=== PATIENT | female | born 1935 | race Caucasian/White ===

== ENCOUNTER 2016-11-17 13:32 | Inpatient (IN) | payer OTHER ==
[~2016-11-17] VITALS: Ht 167.6 cm; Wt 62.9 kg
[2016-11-17 14:55] LABS: MCH 30.8 PG (29.0-34.0); MCHC 31.2 G/DL (30.0-36.0); MCV 98.8 FL (83-99); MEAN PLAT.VOLUME 9.4 uM^3 (9.5-12.4); PLATELET COUNT 223 K/uL (156-360); RBC DIS.WIDTH-CV 17.6 % (11.8-14.6); RED BLOOD COUNT 2.53 M/uL (3.80-5.20); WHITE BLOOD COUNT 3.8 K/uL (4.1-10.2)
[2016-11-17 15:05] LABS: CHLORIDE 104 mEq/L (99-109); SODIUM 139 mEq/L (136-147)
[2016-11-17 15:08] LABS: GLUCOSE 125 mg/dL (70-99)
[2016-11-17 15:09] LABS: ANION GAP 10 MEQ/L (2-14)
[2016-11-17 15:10] LABS: TOTAL BILIRUBIN 0.4 mg/dL (0.0-1.0)
[2016-11-17 15:11] LABS: ALKALINE PHOSPHATASE 78 IU/L (3-129); GFR ESTIMATE (CALCULATED) > 59 mL/min/
[2016-11-17 15:12] LABS: UREA NITROGEN (BUN) 15 mg/dL (9-23)
[2016-11-17 15:15] LABS: LIPASE 9 U/L (1.0-51.0)
[2016-11-17 16:40] LABS: ADD MIUA? YES; BILIRUBIN NEGATIVE; BLOOD NEGATIVE; COLOR YELLOW ((YELLOW)); GLUCOSE (STRIP) NEGATIVE; KETONES NEGATIVE; LEUKOCYTES NEGATIVE; NITRITE NEGATIVE; PROTEIN (STRIP) 30; SPECIFIC GRAVITY 1.026 (1.000-1.030); UROBILINOGEN 0.2 MG/DL (0.2-1.0)
[2016-11-17 16:56] LABS: BACTERIA 1+ /HPF; CASTS NONE SEEN /LPF; CRYSTALS PRESENT; EPITHELIAL CELLS RARE /HPF; MUCUS NONE SEEN /LPF; RED BLOOD CELLS 0-5 /HPF (0-5); WHITE BLOOD CELLS 0-5 /HPF (0-5)
[2016-11-17 18:40] LABS: INTER. NORMALIZED RATIO 1.1; PROTHROMBIN TIME 11.1 (9.2-11.2); PTT 23.1 (25-32)
[2016-11-17 20:38] VITALS: BP 136/66
[2016-11-17 20:55] VITALS: BP 138/69
[2016-11-17 21:51] VITALS: BP 153/67
[2016-11-17] MEDS ORDERED: NEXIUM40 MG PO (22:32)
[2016-11-17] MEDS ORDERED: LORAZEPAM0.5 MG PO (22:33)
[2016-11-17] MEDS ORDERED: LEXAPRO10 MG PO (22:34)
[2016-11-17] MEDS ORDERED: LISINOPRIL10 MG PO (22:36)
[2016-11-17 22:52] VITALS: BP 162/89
[2016-11-17 23:53] VITALS: BP 128/68
[2016-11-18] VITALS (10 sets, daily range): BP systolic 110–150; BP diastolic 59–76
[2016-11-18 06:16] LABS: HEMATOCRIT 28.1 % (36.0-46.0); MCH 31.2 PG (29.0-34.0); MCHC 32.7 G/DL (30.0-36.0); MCV 95.3 FL (83-99); MEAN PLAT.VOLUME 9.6 uM^3 (9.5-12.4); PLATELET COUNT 172 K/uL (156-360); RBC DIS.WIDTH-CV 21.2 % (11.8-14.6); RBC DIS.WIDTH-SD 73.9 % (39-53); RED BLOOD COUNT 2.95 M/uL (3.80-5.20); WHITE BLOOD COUNT 2.9 K/uL (4.1-10.2)
[2016-11-18 06:33] LABS: EOSINOPHIL (%) 2.7 % (0-5); EOSINOPHIL COUNT 0.1 K/uL (0-0.3); INSTRUMENT ABS NEUTROPHIL CT 1.6 K/uL; LYMPHOCYTE COUNT 1.1 K/uL (1.0-2.8); MONOCYTE (%) 2.4 % (3-12); MONOCYTE COUNT 0.1 K/uL (0-0.8); NEUTROPHIL (%) 54.4 % (45-76); NEUTROPHIL COUNT 1.6 K/uL (1.8-6.4)
[2016-11-18 06:40] LABS: ANION GAP 5 MEQ/L (2-14); CHLORIDE 110 MEQ/L (99-109); GFR ESTIMATE (CALCULATED) 38 mL/min/; GLUCOSE 104 mg/dL (70-99); POTASSIUM 4.1 MEQ/L (3.7-5.4); SAMPLE HEMOLYSIS CHECK 0; SAMPLE ICTERIC CHECK 0; SAMPLE LIPEMIA CHECK 0; SODIUM 142 MEQ/L (136-147); UREA NITROGEN (BUN) 17 mg/dL (9-23)
[2016-11-18] MEDS ORDERED: SLEEP MED (12:16)
[2016-11-18] MEDS ORDERED: VITAMIN B122500 MCG PO (12:17)
[2016-11-18] MEDS ORDERED: IRON325 M1 PO (12:17)
[2016-11-18] MEDS ORDERED: ARTIFICIAL TEAR15 M1 BOTH EYES (12:18)
[2016-11-19 03:34] VITALS: BP 121/62
[2016-11-19 06:53] VITALS: BP 131/63
[2016-11-19 06:57] LABS: HEMATOCRIT 27.1 % (36.0-46.0); MCH 31.2 PG (29.0-34.0); MCHC 32.5 G/DL (30.0-36.0); MCV 96.1 FL (83-99); PLATELET COUNT 163 K/uL (156-360); RBC DIS.WIDTH-CV 20.9 % (11.8-14.6); RBC DIS.WIDTH-SD 73.4 % (39-53); RED BLOOD COUNT 2.82 M/uL (3.80-5.20); WHITE BLOOD COUNT 2.5 K/uL (4.1-10.2)
[2016-11-19 07:15] LABS: ANION GAP 7 MEQ/L (2-14); CHLORIDE 111 MEQ/L (99-109); GFR ESTIMATE (CALCULATED) 38 mL/min/; GLUCOSE 91 mg/dL (70-99); POTASSIUM 3.9 MEQ/L (3.7-5.4); SAMPLE HEMOLYSIS CHECK 0; SAMPLE ICTERIC CHECK 0; SAMPLE LIPEMIA CHECK 0; SODIUM 141 MEQ/L (136-147); UREA NITROGEN (BUN) 17 mg/dL (9-23)
[2016-11-19] MEDS ORDERED: ZOFRAN4 MG PO (10:40)
[2016-11-19] MEDS ORDERED: FAMOTIDINE20 MG PO (10:40)
== END 2016-11-19 13:06 | disposition home or self-care (01) | DRG 694 ==
LOC: EME 13:32 → EDOF 20:18 → 2EAST 21:23
PROVIDERS: Hospitalist; Internal Medicine; Nurse Practitioner Family
PROC: 30233N1 Transfusion of Nonautologous Red Blood Cells into Peripheral Vein, Percutaneous Approach (ICD-10-PCS; principal; 2016-11-17)
DX: N13.2 Hydronephrosis with renal and ureteral calculous obstruction (principal); D70.9 Neutropenia, unspecified; D64.9 Anemia, unspecified; E11.9 Type 2 diabetes mellitus without complications; I10 Essential (primary) hypertension; K86.9 Disease of pancreas, unspecified; Z87.440 Personal history of urinary (tract) infections; Z83.3 Family history of diabetes mellitus; Z82.49 Family history of ischemic heart disease and other diseases of the circulatory system; R19.7 Diarrhea, unspecified; R53.83 Other fatigue; R68.83 Chills (without fever)
CPT/HCPCS: 74000; 74177; 80048; 80053; 81003; 83605; 83690; 83735; 85025; 85027; 85610; 85730; 86900; 86901; 86920; 93971; 99281; 99285; J1644; J1885; J1940; J2270; J2405; J3010; J7030; J7040; P9016

== ENCOUNTER 2016-12-04 12:41 | Emergency (ER) | payer OTHER ==
[~2016-12-04] VITALS: Ht 167.6 cm; Wt 58.3 kg
[~2016-12-04 12:41] MED LIST: ARTIFICIAL TEAR15 M1 BOTH EYES; FAMOTIDINE20 MG PO; IRON325 M1 PO; LEXAPRO10 MG PO; LISINOPRIL10 MG PO; LORAZEPAM0.5 MG PO; NEXIUM40 MG PO; SLEEP MED; VITAMIN B122500 MCG PO; ZOFRAN4 MG PO
[2016-12-04 13:57] LABS: HEMATOCRIT 32.6 % (36.0-46.0); MCH 30.4 PG (29.0-34.0); MCHC 31.6 G/DL (30.0-36.0); MCV 96.2 FL (83-99); MEAN PLAT.VOLUME 9.2 uM^3 (9.5-12.4); PLATELET COUNT 173 K/uL (156-360); RBC DIS.WIDTH-CV 18.6 % (11.8-14.6); RBC DIS.WIDTH-SD 66.4 % (39-53); RED BLOOD COUNT 3.39 M/uL (3.80-5.20); WHITE BLOOD COUNT 3.3 K/uL (4.1-10.2)
[2016-12-04 14:06] LABS: CHLORIDE 107 mEq/L (99-109); POTASSIUM 4.2 mEq/L (3.7-5.4); SODIUM 139 mEq/L (136-147)
[2016-12-04 14:09] LABS: GLUCOSE 95 mg/dL (70-99)
[2016-12-04 14:10] LABS: ANION GAP 6 MEQ/L (2-14)
[2016-12-04 14:11] LABS: TOTAL BILIRUBIN 0.6 mg/dL (0.0-1.0)
[2016-12-04 14:12] LABS: ALKALINE PHOSPHATASE 79 IU/L (3-129); GFR ESTIMATE (CALCULATED) > 59 mL/min/
[2016-12-04 14:13] LABS: UREA NITROGEN (BUN) 17 mg/dL (9-23)
[2016-12-04 15:09] LABS: ADD MIUA? NO; BILIRUBIN NEGATIVE; BLOOD NEGATIVE; COLOR YELLOW ((YELLOW)); GLUCOSE (STRIP) NEGATIVE; KETONES NEGATIVE; LEUKOCYTES NEGATIVE; NITRITE NEGATIVE; PROTEIN (STRIP) 30; SPECIFIC GRAVITY 1.013 (1.000-1.030); UCUL ADDED? NO; UROBILINOGEN 0.2 MG/DL (0.2-1.0)
[2016-12-04 16:28] VITALS: BP 163/77
== END 2016-12-04 16:29 | disposition home or self-care (01) ==
LOC: EME 12:41
DX: R10.9 Unspecified abdominal pain (principal); R53.1 Weakness; R35.0 Frequency of micturition
CPT/HCPCS: 80053; 81003; 85027; 99281; 99283

== ENCOUNTER 2017-04-10 15:18 | Emergency (ER) | payer OTHER ==
[~2017-04-10] VITALS: Ht 167.6 cm; Wt 50.2 kg
[~2017-04-10 15:18] MED LIST changes: +BENZONATATE100 MG PO; +CEFTIN500 MG PO; +DIGOXIN125 MCG PO; +DOXYCYCLINE HY100 M3 PO; +LOPRESSOR25 MG PO; +MEGESTROL400 MG/10 PO; +MIRTAZAPINE15 MG PO; +TYLENOL REGULA325 MG PO
[2017-04-10 15:54] LABS: HEMATOCRIT 24.2 % (36.0-46.0); MCH 32.4 PG (29.0-34.0); MCHC 31.8 G/DL (30.0-36.0); MCV 101.7 FL (83-99); MEAN PLAT.VOLUME 9.9 uM^3 (9.5-12.4); NRBC (%) 0.4 /100 WBC (0-0); PLATELET COUNT 214 K/uL (156-360); RBC DIS.WIDTH-CV 20.4 % (11.8-14.6); RBC DIS.WIDTH-SD 74.7 % (39-53); RED BLOOD COUNT 2.38 M/uL (3.80-5.20); WHITE BLOOD COUNT 5.2 K/uL (4.1-10.2)
[2017-04-10 16:05] LABS: CHLORIDE 107 mEq/L (99-109); POTASSIUM 3.8 mEq/L (3.7-5.4); SODIUM 140 mEq/L (136-147)
[2017-04-10 16:07] LABS: GLUCOSE 97 mg/dL (70-99)
[2017-04-10 16:09] LABS: ANION GAP 9 MEQ/L (2-14)
[2017-04-10 16:11] LABS: GFR ESTIMATE (CALCULATED) > 59 mL/min/
[2017-04-10 16:12] LABS: UREA NITROGEN (BUN) 12 mg/dL (9-23)
[2017-04-10 17:35] VITALS: BP 151/61
[2017-04-11] MEDS ORDERED: LOPRESSOR50 MG PO (11:27)
[2017-04-11] MEDS ORDERED: REMERON30 M2 PO (11:28)
[2017-04-11] MEDS ORDERED: ONE-A-DAY ESSE1 EAC1 PO (11:30)
[2017-04-11] MEDS ORDERED: VITAMIN D400 UNIT PO (11:30)
[2017-04-11] MEDS ORDERED: VITAMIN B122500 MCG PO (11:31)
[2017-04-11] MEDS ORDERED: VITAMIN C1000 MG PO (11:31)
== END 2017-04-10 17:51 | disposition home or self-care (01) ==
LOC: EME 15:18
DX: D64.9 Anemia, unspecified (principal); R42 Dizziness and giddiness; Z85.830 Personal history of malignant neoplasm of bone
CPT/HCPCS: 80048; 85027; 86850; 86900; 86901; 86920; 99281; 99284

== ENCOUNTER 2017-06-24 13:08 | Inpatient (IN) | payer OTHER ==
[~2017-06-24] VITALS: Ht 167.6 cm; Wt 48.5 kg
[~2017-06-24 13:08] MED LIST changes: +LOPRESSOR50 MG PO; +ONE-A-DAY ESSE1 EAC1 PO; +REMERON30 M2 PO; +VITAMIN C1000 MG PO; +VITAMIN D400 UNIT PO
[2017-06-24 13:54] LABS: HEMATOCRIT 25.3 % (36.0-46.0); HEMOGLOBIN 8.3 G/DL (11.9-15.5); MCH 35.8 PG (29.0-34.0); MCHC 32.8 G/DL (30.0-36.0); MCV 109.1 FL (83-99); PLATELET COUNT 132 K/uL (156-360); RBC DIS.WIDTH-CV 17.2 % (11.8-14.6); RBC DIS.WIDTH-SD 68.9 % (39-53); RED BLOOD COUNT 2.32 M/uL (3.80-5.20); WHITE BLOOD COUNT 3.2 K/uL (4.1-10.2)
[2017-06-24 14:14] LABS: TROP-I INTERPRETATION NEGATIVE; TROPONIN-I 0.04 ng/mL (0.0-0.30)
[2017-06-24 14:22] LABS: CHLORIDE 100 MEQ/L (99-109); CREATININE 0.7 MG/DL (0.6-1.3); GFR ESTIMATE (CALCULATED) > 59 mL/min/; GLUCOSE 175 mg/dL (70-99); POTASSIUM 3.8 MEQ/L (3.7-5.4); SODIUM 131 MEQ/L (136-147); UREA NITROGEN (BUN) 17 mg/dL (9-23)
[2017-06-24] MEDS ORDERED: ANTIVERT25 MG PO (16:10)
[2017-06-24] MEDS ORDERED: BACTRIM,SEPT1 TABLET PO (16:12)
[2017-06-24] MEDS ORDERED: ELIQUIS2.5 MG PO (16:12)
[2017-06-24] MEDS ORDERED: RANITIDINE HCL150 MG PO (16:14)
[2017-06-24 20:51] VITALS: BP 131/60
[2017-06-24 23:49] VITALS: BP 112/54
[2017-06-25] VITALS (13 sets, daily range): BP systolic 108–156; BP diastolic 57–82
[2017-06-25 06:07] LABS: HEMOGLOBIN 6.7 G/DL (11.9-15.5); MCH 34.7 PG (29.0-34.0); MCHC 31.9 G/DL (30.0-36.0); MCV 108.8 FL (83-99); PLATELET COUNT 130 K/uL (156-360); RBC DIS.WIDTH-CV 17.2 % (11.8-14.6); RBC DIS.WIDTH-SD 68.5 % (39-53); RED BLOOD COUNT 1.93 M/uL (3.80-5.20); WHITE BLOOD COUNT 2.8 K/uL (4.1-10.2)
[2017-06-25 06:08] LABS: CHLORIDE 102 MEQ/L (99-109); CREATININE 0.6 MG/DL (0.6-1.3); GFR ESTIMATE (CALCULATED) > 59 mL/min/; GLUCOSE 148 mg/dL (70-99); POTASSIUM 3.7 MEQ/L (3.7-5.4); SODIUM 132 MEQ/L (136-147); UREA NITROGEN (BUN) 16 mg/dL (9-23)
[2017-06-25 06:54] LABS: ABS NEUTROPHIL COUNT 1.9; ANISOCYTOSIS 2+; BAND NEUTROPHILS 20.9 % (0-8.0); EOSINOPHIL ABS CT 0; EOSINOPHILS 0.9 % (0-5.0); LYMPHOCYTES 29.5 % (15.0-45.0); MACROCYTES 2+; MONOCYTES 0.9 % (0-9.0); MYELOCYTES 1.7 %; PLAT.SUFFICIENCY DECREASED; POIKILOCYTOSIS 1+; POLYCHROMASIA 2+
[2017-06-25 07:10] LABS: SEG.NEUTROPHILS 46.1 % (46.0-76.0)
[2017-06-25 14:59] LABS: IMM.RETIC FRACTION 12.1 % (3-19); RETIC HGB EQUIVALENT 30.4 (28-36)
[2017-06-25 16:06] LABS: FOLIC ACID (FOLATE) 6.8 NG/ML (5.0-22.0)
[2017-06-25 16:20] LABS: FERRITIN 1507 NG/ML (10-291)
[2017-06-25 16:42] LABS: IRON 27 MCG/DL (35-150); TRANSFERRIN (TIBC) 75.3 mg/dL (215-380); TRANSFERRIN SATUR. 36 % (20-55)
[2017-06-26 00:51] VITALS: BP 138/64
[2017-06-26 03:40] VITALS: BP 137/63
[2017-06-26 06:13] LABS: CHLORIDE 100 MEQ/L (99-109); CREATININE 0.5 MG/DL (0.6-1.3); GFR ESTIMATE (CALCULATED) > 59 mL/min/; GLUCOSE 131 mg/dL (70-99); POTASSIUM 3.1 MEQ/L (3.7-5.4); SODIUM 133 MEQ/L (136-147); UREA NITROGEN (BUN) 18 mg/dL (9-23)
[2017-06-26 06:56] LABS: HEMATOCRIT 28.2 % (36.0-46.0); MCH 33.1 PG (29.0-34.0); RBC DIS.WIDTH-CV 20.8 % (11.8-14.6); RBC DIS.WIDTH-SD 75.6 % (39-53); WHITE BLOOD COUNT 2.5 K/uL (4.1-10.2)
[2017-06-26 07:05] LABS: ABS NEUTROPHIL COUNT 1.8; ANISOCYTOSIS 2+; ATYPICAL LYMPHOCYTE 2.6 %; BAND NEUTROPHILS 25.4 % (0-8.0); EOSINOPHIL ABS CT 0; EOSINOPHILS 0.9 % (0-5.0); HEMOGLOBIN 9.3 G/DL (11.9-15.5); LYMPHOCYTES 21.9 % (15.0-45.0); MACROCYTES 2+; MCV 100.4 FL (83-99); METAMYELOCYTES 1.8 %; MONOCYTES 0.9 % (0-9.0); PLAT.SUFFICIENCY DECREASED; PLATELET COUNT 134 K/uL (156-360); RED BLOOD COUNT 2.81 M/uL (3.80-5.20); SEG.NEUTROPHILS 46.5 % (46.0-76.0)
[2017-06-26 08:23] VITALS: BP 148/75
[2017-06-26 11:18] VITALS: BP 136/71
[2017-06-26 15:55] VITALS: BP 131/60
[2017-06-26 20:43] VITALS: BP 152/66
[2017-06-27] VITALS (7 sets, daily range): BP systolic 118–149; BP diastolic 59–76
[2017-06-27 03:35] LABS: APPEARANCE SL.HAZY ((CLEAR)); BILIRUBIN NEGATIVE; BLOOD MODERATE; GLUCOSE (STRIP) NEGATIVE; KETONES NEGATIVE; LEUKOCYTES SMALL; NITRITE NEGATIVE; PROTEIN (STRIP) 30; SPECIFIC GRAVITY 1.024 (1.000-1.030); UROBILINOGEN 0.2 MG/DL (0.2-1.0)
[2017-06-27 03:42] LABS: BACTERIA 1+ /HPF; CALCIUM OXALATE CRYSTALS 1+ /HPF; EPITHELIAL CELLS RARE /HPF; HYALINE CASTS 0-5 /LPF; MUCUS TRACE /LPF; RED BLOOD CELLS TNTC /HPF (0-5); WHITE BLOOD CELLS TNTC /HPF (0-5)
[2017-06-27 04:03] LABS: COLOR YELLOW ((YELLOW))
[2017-06-27 08:52] LABS: HEMATOCRIT 29.8 % (36.0-46.0); HEMOGLOBIN 9.8 G/DL (11.9-15.5); MCH 33.3 PG (29.0-34.0); MCHC 32.9 G/DL (30.0-36.0); MCV 101.4 FL (83-99); PLATELET COUNT 132 K/uL (156-360); RBC DIS.WIDTH-CV 20.2 % (11.8-14.6); RBC DIS.WIDTH-SD 73.9 % (39-53); RED BLOOD COUNT 2.94 M/uL (3.80-5.20); WHITE BLOOD COUNT 2.4 K/uL (4.1-10.2)
[2017-06-27 09:28] LABS: CHLORIDE 103 MEQ/L (99-109); CREATININE 0.5 MG/DL (0.6-1.3); GFR ESTIMATE (CALCULATED) > 59 mL/min/; GLUCOSE 138 mg/dL (70-99); POTASSIUM 3.9 MEQ/L (3.7-5.4); SODIUM 135 MEQ/L (136-147); UREA NITROGEN (BUN) 16 mg/dL (9-23)
[2017-06-28 03:57] VITALS: BP 138/63
[2017-06-28 06:26] LABS: HEMATOCRIT 27.3 % (36.0-46.0); HEMOGLOBIN 9.1 G/DL (11.9-15.5); MCHC 33.3 G/DL (30.0-36.0); MCV 101.9 FL (83-99); PLATELET COUNT 121 K/uL (156-360); RBC DIS.WIDTH-CV 19.7 % (11.8-14.6); RED BLOOD COUNT 2.68 M/uL (3.80-5.20); WHITE BLOOD COUNT 2.3 K/uL (4.1-10.2)
[2017-06-28 06:56] LABS: ABS NEUTROPHIL COUNT 1.5; ANISOCYTOSIS 2+; EOSINOPHIL ABS CT 0; LYMPHOCYTES 31.3 % (15.0-45.0); MACROCYTES 2+; METAMYELOCYTES 0.9 %; MONOCYTES 1.7 % (0-9.0); PLAT.SUFFICIENCY ADEQUATE; SEG.NEUTROPHILS 62.6 % (46.0-76.0)
[2017-06-28 06:58] LABS: BAND NEUTROPHILS 3.5 % (0-8.0)
[2017-06-28 07:03] LABS: CHLORIDE 103 MEQ/L (99-109); CREATININE 0.5 MG/DL (0.6-1.3); GFR ESTIMATE (CALCULATED) > 59 mL/min/; GLUCOSE 104 mg/dL (70-99); POTASSIUM 3.4 MEQ/L (3.7-5.4); SODIUM 137 MEQ/L (136-147); UREA NITROGEN (BUN) 14 mg/dL (9-23)
[2017-06-28 07:29] VITALS: BP 144/66
[2017-06-28 11:20] VITALS: BP 142/68
[2017-06-28 15:18] VITALS: BP 125/61
[2017-06-28 19:09] VITALS: BP 142/66
[2017-06-28 22:53] VITALS: BP 132/67
[2017-06-29 03:58] VITALS: BP 143/69
[2017-06-29 06:21] LABS: HEMATOCRIT 27.3 % (36.0-46.0); HEMOGLOBIN 8.8 G/DL (11.9-15.5); MCH 32.8 PG (29.0-34.0); MCHC 32.2 G/DL (30.0-36.0); MCV 101.9 FL (83-99); PLATELET COUNT 133 K/uL (156-360); RBC DIS.WIDTH-CV 19.3 % (11.8-14.6); RBC DIS.WIDTH-SD 71.8 % (39-53); RED BLOOD COUNT 2.68 M/uL (3.80-5.20); WHITE BLOOD COUNT 2.6 K/uL (4.1-10.2)
[2017-06-29 06:41] LABS: CHLORIDE 102 MEQ/L (99-109); CREATININE 0.5 MG/DL (0.6-1.3); GFR ESTIMATE (CALCULATED) > 59 mL/min/; GLUCOSE 121 mg/dL (70-99); POTASSIUM 3.7 MEQ/L (3.7-5.4); SODIUM 139 MEQ/L (136-147); UREA NITROGEN (BUN) 12 mg/dL (9-23)
[2017-06-29 07:02] LABS: STOOL OCCULT BLD 1ST SPECIMEN POSITIVE
[2017-06-29 07:20] LABS: C DIFF TOXIN POSITIVE (NEGATIVE)
[2017-06-29 07:50] VITALS: BP 119/56
[2017-06-29 11:50] VITALS: BP 135/63
[2017-06-29 16:17] VITALS: BP 148/67
[2017-06-29 19:13] VITALS: BP 133/65
[2017-06-29 20:05] LABS: HEMATOCRIT 28.5 % (36.0-46.0); HEMOGLOBIN 9.5 G/DL (11.9-15.5); MCV 102.2 FL (83-99)
[2017-06-29 23:01] VITALS: BP 118/58
[2017-06-30 03:55] VITALS: BP 122/62
[2017-06-30 06:28] LABS: HEMOGLOBIN 8.7 G/DL (11.9-15.5); MCH 32.8 PG (29.0-34.0); MCHC 32.2 G/DL (30.0-36.0); MCV 101.9 FL (83-99); PLATELET COUNT 145 K/uL (156-360); RBC DIS.WIDTH-CV 18.6 % (11.8-14.6); RBC DIS.WIDTH-SD 69.8 % (39-53); RED BLOOD COUNT 2.65 M/uL (3.80-5.20)
[2017-06-30 07:06] LABS: CHLORIDE 102 MEQ/L (99-109); CREATININE 0.5 MG/DL (0.6-1.3); GFR ESTIMATE (CALCULATED) > 59 mL/min/; GLUCOSE 120 mg/dL (70-99); POTASSIUM 3.4 MEQ/L (3.7-5.4); SODIUM 138 MEQ/L (136-147); UREA NITROGEN (BUN) 11 mg/dL (9-23)
[2017-06-30 07:30] VITALS: BP 120/62
[2017-06-30 11:00] VITALS: BP 130/63
[2017-06-30 18:00] VITALS: BP 131/61
[2017-07-01 00:09] VITALS: BP 136/60
[2017-07-01 06:30] LABS: HEMOGLOBIN 8.4 G/DL (11.9-15.5); MCH 33.5 PG (29.0-34.0); MCHC 32.3 G/DL (30.0-36.0); MCV 103.6 FL (83-99); PLATELET COUNT 142 K/uL (156-360); RBC DIS.WIDTH-CV 18.7 % (11.8-14.6); RBC DIS.WIDTH-SD 70.9 % (39-53); RED BLOOD COUNT 2.51 M/uL (3.80-5.20); WHITE BLOOD COUNT 3.1 K/uL (4.1-10.2)
[2017-07-01 06:54] LABS: CHLORIDE 105 MEQ/L (99-109); CREATININE 0.5 MG/DL (0.6-1.3); GFR ESTIMATE (CALCULATED) > 59 mL/min/; GLUCOSE 102 mg/dL (70-99); SODIUM 139 MEQ/L (136-147); UREA NITROGEN (BUN) 8 mg/dL (9-23)
[2017-07-01 07:30] VITALS: BP 144/67
[2017-07-01 12:07] VITALS: BP 133/70
[2017-07-01 16:36] VITALS: BP 158/74
[2017-07-01 21:53] VITALS: BP 148/72
[2017-07-02 07:00] LABS: HEMOGLOBIN 8.8 G/DL (11.9-15.5); MCH 33.8 PG (29.0-34.0); MCHC 32.6 G/DL (30.0-36.0); MCV 103.8 FL (83-99); PLATELET COUNT 158 K/uL (156-360); RBC DIS.WIDTH-CV 18.5 % (11.8-14.6); RBC DIS.WIDTH-SD 70.8 % (39-53)
[2017-07-02 07:44] VITALS: BP 137/70
[2017-07-02 11:52] VITALS: BP 122/68
[2017-07-02 12:09] VITALS: BP 119/69
[2017-07-02 12:17] LABS: HEMOGLOBIN 9.6 G/DL (11.9-15.5); MCH 33.7 PG (29.0-34.0); MCV 105.3 FL (83-99); PLATELET COUNT 177 K/uL (156-360); RBC DIS.WIDTH-CV 18.4 % (11.8-14.6); RBC DIS.WIDTH-SD 70.7 % (39-53); RED BLOOD COUNT 2.85 M/uL (3.80-5.20); WHITE BLOOD COUNT 3.2 K/uL (4.1-10.2)
[2017-07-02 12:41] LABS: ALBUMIN 2.5 G/DL (3.2-4.8); ALKALINE PHOSPHATASE 57 IU/L (3-129); ALT (GPT) 6 IU/L (3-49); AST (GOT) 13 IU/L (2-34); CHLORIDE 100 MEQ/L (99-109); CREATININE 0.5 MG/DL (0.6-1.3); GFR ESTIMATE (CALCULATED) > 59 mL/min/; GLUCOSE 101 mg/dL (70-99); POTASSIUM 4.2 MEQ/L (3.7-5.4); SODIUM 138 MEQ/L (136-147); TOTAL BILIRUBIN 0.3 MG/DL (0.0-1.0); TOTAL PROTEIN 5.5 G/DL (6.4-8.3); UREA NITROGEN (BUN) 9 mg/dL (9-23)
[2017-07-02] MEDS ORDERED: FERROUS SULFAT325 MG PO (14:28)
[2017-07-02] MEDS ORDERED: VANCOMYCIN125 MG/2.5 PO (14:28)
[2017-07-02] MEDS ORDERED: CARDIZEM30 MG PO (14:29)
[2017-07-02] MEDS ORDERED: FLORASTOR250 MG PO (14:29)
== END 2017-07-02 16:23 | DRG 308 ==
LOC: EME 13:08 → EDOF 15:44 → ENRESERV 15:50 → EDOF 16:15 → 4EAST 16:15 → 4SOUTH 16:15 → ENRESERV 16:16 → 4SOUTH 20:25 → ENRESERV 06-25 07:31 → 4EAST 06-25 08:50 → ENRESERV 06-27 20:01 → 5EAST 06-27 22:17
PROVIDERS: Hospitalist; Internal Medicine; Physician Assistant Medical
PROC: 30233N1 Transfusion of Nonautologous Red Blood Cells into Peripheral Vein, Percutaneous Approach (ICD-10-PCS; principal; 2017-06-25)
DX: I48.0 Paroxysmal atrial fibrillation (principal); J13 Pneumonia due to Streptococcus pneumoniae; J44.0 Chronic obstructive pulmonary disease with (acute) lower respiratory infection; I82.412 Acute embolism and thrombosis of left femoral vein; J98.11 Atelectasis; E11.9 Type 2 diabetes mellitus without complications; E86.0 Dehydration; E78.5 Hyperlipidemia, unspecified; R19.5 Other fecal abnormalities; I10 Essential (primary) hypertension; R05 Cough; C90.00 Multiple myeloma not having achieved remission; A04.72 Enterocolitis due to Clostridium difficile, not specified as recurrent; D64.9 Anemia, unspecified; E87.6 Hypokalemia; D61.818 Other pancytopenia; E87.1 Hypo-osmolality and hyponatremia; B00.1 Herpesviral vesicular dermatitis; R29.6 Repeated falls; R60.9 Edema, unspecified; Z92.21 Personal history of antineoplastic chemotherapy; Z91.81 History of falling; Z86.718 Personal history of other venous thrombosis and embolism; Z88.5 Allergy status to narcotic agent; Z68.1 Body mass index [BMI] 19.9 or less, adult; Z79.01 Long term (current) use of anticoagulants; Z79.899 Other long term (current) drug therapy; Z85.830 Personal history of malignant neoplasm of bone; Z83.3 Family history of diabetes mellitus; Z82.49 Family history of ischemic heart disease and other diseases of the circulatory system
CPT/HCPCS: 71045; 80048; 80053; 81003; 82272; 82607; 82728; 82746; 82948; 83540; 83605; 84443; 84466; 84484; 85014; 85018; 85025; 85027; 85046; 86850; 86900; 86901; 86920; 87040; 87070; 87205; 87449; 87493; 87502; 93005; 93971; 94799; 97530 GP; 99281; 99285; J0295; J0456; J1160; J1644; J1940; J3480; J7030; J7040; J7050; P9016

== ENCOUNTER 2017-06-29 14:49 | Inpatient (IN) | payer OTHER ==
[~2017-06-29] VITALS: Ht 167.6 cm; Wt 49.5 kg
[~2017-06-29 14:49] MED LIST changes: +ANTIVERT25 MG PO; +BACTRIM,SEPT1 TABLET PO; +ELIQUIS2.5 MG PO; +RANITIDINE HCL150 MG PO
[2017-07-02] MEDS ORDERED: FERROUS SULFAT325 MG PO (14:28)
[2017-07-02] MEDS ORDERED: VANCOMYCIN125 MG/2.5 PO (14:28)
[2017-07-02] MEDS ORDERED: CARDIZEM30 MG PO (14:29)
[2017-07-02] MEDS ORDERED: FLORASTOR250 MG PO (14:29)
[2017-07-02 16:40] VITALS: BP 130/60
[2017-07-03 00:05] VITALS: BP 135/64
[2017-07-03 06:39] VITALS: BP 128/59
[2017-07-03 07:09] LABS: HEMATOCRIT 28.2 % (36.0-46.0); HEMOGLOBIN 8.9 G/DL (11.9-15.5); MCH 33.5 PG (29.0-34.0); MCHC 31.6 G/DL (30.0-36.0); PLATELET COUNT 167 K/uL (156-360); RBC DIS.WIDTH-CV 18.6 % (11.8-14.6); RBC DIS.WIDTH-SD 72.9 % (39-53); RED BLOOD COUNT 2.66 M/uL (3.80-5.20); WHITE BLOOD COUNT 3.5 K/uL (4.1-10.2)
[2017-07-03 07:40] LABS: ALBUMIN 2.4 G/DL (3.2-4.8); ALKALINE PHOSPHATASE 56 IU/L (3-129); ALT (GPT) 6 IU/L (3-49); AST (GOT) 12 IU/L (2-34); CHLORIDE 103 MEQ/L (99-109); CREATININE 0.7 MG/DL (0.6-1.3); GFR ESTIMATE (CALCULATED) > 59 mL/min/; GLUCOSE 118 mg/dL (70-99); POTASSIUM 4.6 MEQ/L (3.7-5.4); SODIUM 139 MEQ/L (136-147); TOTAL PROTEIN 5.1 G/DL (6.4-8.3); UREA NITROGEN (BUN) 15 mg/dL (9-23)
[2017-07-03 07:42] LABS: TOTAL BILIRUBIN 0.2 MG/DL (0.0-1.0)
[2017-07-03 15:08] VITALS: BP 122/58
[2017-07-04 07:06] VITALS: BP 133/64
[2017-07-04 15:00] VITALS: BP 120/52
[2017-07-05 06:19] VITALS: BP 138/68
[2017-07-05 16:29] VITALS: BP 118/55
[2017-07-06 05:47] VITALS: BP 114/53
[2017-07-06 15:30] VITALS: BP 110/58
[2017-07-07 06:26] VITALS: BP 118/58
[2017-07-07 15:26] VITALS: BP 115/55
[2017-07-08 05:23] VITALS: BP 121/58
[2017-07-08 08:39] LABS: HEMATOCRIT 30.1 % (36.0-46.0); HEMOGLOBIN 9.3 G/DL (11.9-15.5); MCH 33.5 PG (29.0-34.0); MCHC 30.9 G/DL (30.0-36.0); MCV 108.3 FL (83-99); NRBC (%) 0.7 /100 WBC (0-0); PLATELET COUNT 216 K/uL (156-360); RBC DIS.WIDTH-CV 18.3 % (11.8-14.6); RBC DIS.WIDTH-SD 73.4 % (39-53); RED BLOOD COUNT 2.78 M/uL (3.80-5.20); WHITE BLOOD COUNT 4.4 K/uL (4.1-10.2)
[2017-07-08 09:08] LABS: ALKALINE PHOSPHATASE 65 IU/L (3-129); AST (GOT) 17 IU/L (2-34); CHLORIDE 102 MEQ/L (99-109); CREATININE 0.8 MG/DL (0.6-1.3); GFR ESTIMATE (CALCULATED) > 59 mL/min/; GLUCOSE 138 mg/dL (70-99); POTASSIUM 4.3 MEQ/L (3.7-5.4); SODIUM 139 MEQ/L (136-147)
[2017-07-08 09:16] LABS: ALT (GPT) 12 IU/L (3-49); TOTAL BILIRUBIN 0.3 MG/DL (0.0-1.0); TOTAL PROTEIN 6.6 G/DL (6.4-8.3); UREA NITROGEN (BUN) 25 mg/dL (9-23)
[2017-07-08 09:28] VITALS: BP 129/60
[2017-07-08 15:26] VITALS: BP 112/59
[2017-07-08] MEDS ORDERED: TRIAMCINOLONE A15 GM TP (19:23)
[2017-07-08] MEDS ORDERED: VANCOCIN 250 M250 MG PO (19:23)
[2017-07-08] MEDS ORDERED: ELIQUIS2.5 MG PO (19:23)
[2017-07-08] MEDS ORDERED: CARDIZEM30 MG PO (19:23)
[2017-07-08] MEDS ORDERED: RANITIDINE HCL150 MG PO (19:23)
[2017-07-08] MEDS ORDERED: FERROUS SULFAT325 MG PO (19:23)
[2017-07-08] MEDS ORDERED: LORATADINE10 M2 PO (19:23)
[2017-07-08] MEDS ORDERED: FLORASTOR250 MG PO (19:23)
[2017-07-09 05:32] VITALS: BP 123/55
== END 2017-07-09 11:44 | disposition home health service (06) | DRG 945 ==
LOC: 3WEST 14:49 → ENPENDDIS 07-09 → 3WEST 07-09 11:44
PROVIDERS: Physical Medicine & Rehabilitation Pain Medicine
PROC: F07M0ZZ Range of Motion and Joint Mobility Treatment of Musculoskeletal System - Whole Body (ICD-10-PCS; principal; 2017-07-02)
DX: R53.1 Weakness (principal); R29.6 Repeated falls; R26.9 Unspecified abnormalities of gait and mobility; A04.72 Enterocolitis due to Clostridium difficile, not specified as recurrent; C90.00 Multiple myeloma not having achieved remission; I82.402 Acute embolism and thrombosis of unspecified deep veins of left lower extremity; L30.9 Dermatitis, unspecified; R60.9 Edema, unspecified; J44.9 Chronic obstructive pulmonary disease, unspecified; R63.4 Abnormal weight loss; Z68.1 Body mass index [BMI] 19.9 or less, adult; R15.9 Full incontinence of feces; D64.9 Anemia, unspecified; D69.6 Thrombocytopenia, unspecified; E83.51 Hypocalcemia; E87.1 Hypo-osmolality and hyponatremia; E87.6 Hypokalemia; I48.2 Chronic atrial fibrillation; I10 Essential (primary) hypertension; E78.5 Hyperlipidemia, unspecified; Z82.49 Family history of ischemic heart disease and other diseases of the circulatory system; Z83.3 Family history of diabetes mellitus; Z86.718 Personal history of other venous thrombosis and embolism
CPT/HCPCS: 80053; 85027; 92523 GN; 97110 GO; 97530 GP

== ENCOUNTER 2017-08-02 13:48 | Emergency (ER) | payer OTHER ==
[~2017-08-02] VITALS: Ht 167.6 cm; Wt 50.3 kg
[~2017-08-02 13:48] MED LIST changes: +CARDIZEM30 MG PO; +FERROUS SULFAT325 MG PO; +FLORASTOR250 MG PO; +LORATADINE10 M2 PO; +TRIAMCINOLONE A15 GM TP; +VANCOCIN 250 M250 MG PO; +VANCOMYCIN125 MG/2.5 PO
[2017-08-02 15:13] LABS: HEMATOCRIT 25.5 % (36.0-46.0); HEMOGLOBIN 8.5 G/DL (11.9-15.5); MCH 34.6 PG (29.0-34.0); MCHC 33.3 G/DL (30.0-36.0); MCV 103.7 FL (83-99); RBC DIS.WIDTH-CV 18.1 % (11.8-14.6); RBC DIS.WIDTH-SD 68.6 % (39-53); RED BLOOD COUNT 2.46 M/uL (3.80-5.20); WHITE BLOOD COUNT 3.4 K/uL (4.1-10.2)
[2017-08-02 15:23] LABS: ALBUMIN 3.3 g/dL (3.2-4.8)
[2017-08-02 15:24] LABS: CHLORIDE 102 mEq/L (99-109); POTASSIUM 4.2 mEq/L (3.7-5.4); SODIUM 138 mEq/L (136-147)
[2017-08-02 15:26] LABS: GLUCOSE 101 mg/dL (70-99); TOTAL PROTEIN 7.2 g/dL (6.4-8.3)
[2017-08-02 15:29] LABS: ALKALINE PHOSPHATASE 59 IU/L (3-129)
[2017-08-02 15:30] LABS: CREATININE 0.8 mg/dL (0.6-1.3); GFR ESTIMATE (CALCULATED) > 59 mL/min/
[2017-08-02 15:31] LABS: AST (GOT) 10 IU/L (2-34); UREA NITROGEN (BUN) 17 mg/dL (9-23)
[2017-08-02 15:32] LABS: ALT (GPT) 8 IU/L (3-49)
[2017-08-02 16:46] VITALS: BP 107/60
[2017-08-02 18:19] LABS: PLATELET COUNT 118 K/uL (156-360)
== END 2017-08-02 16:57 | disposition home or self-care (01) ==
LOC: EME 13:48
PROVIDERS: Physician Assistant
DX: R13.10 Dysphagia, unspecified (principal); K21.9 Gastro-esophageal reflux disease without esophagitis; E11.9 Type 2 diabetes mellitus without complications; C96.9 Malignant neoplasm of lymphoid, hematopoietic and related tissue, unspecified; I48.91 Unspecified atrial fibrillation; Z79.01 Long term (current) use of anticoagulants; I10 Essential (primary) hypertension; F41.9 Anxiety disorder, unspecified; Z87.442 Personal history of urinary calculi; Z88.5 Allergy status to narcotic agent
CPT/HCPCS: 80053; 81003; 84484; 85027; 92610 GN; 93005; 99281; 99284; G8996 GN CH; G8998 GN CH; J7030

== ENCOUNTER 2017-08-06 14:13 | Emergency (ER) | payer OTHER ==
[~2017-08-06] VITALS: Ht 167.6 cm; Wt 48.4 kg
[2017-08-06 16:34] LABS: HEMATOCRIT 26.5 % (36.0-46.0); HEMOGLOBIN 8.6 G/DL (11.9-15.5); MCH 34.4 PG (29.0-34.0); MCHC 32.5 G/DL (30.0-36.0); RBC DIS.WIDTH-CV 18.4 % (11.8-14.6); RBC DIS.WIDTH-SD 70.9 % (39-53); WHITE BLOOD COUNT 3.4 K/uL (4.1-10.2)
[2017-08-06 16:50] LABS: ALBUMIN 3.4 g/dL (3.2-4.8); CHLORIDE 104 mEq/L (99-109); POTASSIUM 3.7 mEq/L (3.7-5.4); SODIUM 142 mEq/L (136-147)
[2017-08-06 16:52] LABS: GLUCOSE 119 mg/dL (70-99); PLATELET COUNT 168 K/uL (156-360); TOTAL PROTEIN 7.7 g/dL (6.4-8.3)
[2017-08-06 16:56] LABS: ALKALINE PHOSPHATASE 56 IU/L (3-129); CREATININE 0.8 mg/dL (0.6-1.3); GFR ESTIMATE (CALCULATED) > 59 mL/min/
[2017-08-06 16:57] LABS: UREA NITROGEN (BUN) 23 mg/dL (9-23)
[2017-08-06 16:58] LABS: AST (GOT) 12 IU/L (2-34)
[2017-08-06 16:59] LABS: ALT (GPT) 8 IU/L (3-49)
[2017-08-06 17:04] LABS: TOTAL BILIRUBIN 0.6 mg/dL (0.0-1.0)
[2017-08-06 17:09] LABS: BASOPHIL (%) 0.9 % (0-1); EOSINOPHIL (%) 1.2 % (0-5); IMMATURE GRANULOCYTE (%) 1.8 % (0.0-0.7); LYMPHOCYTE (%) 33.1 % (15-42); LYMPHOCYTE COUNT 1.1 K/uL (1.0-2.8); MONOCYTE (%) 2.1 % (3-12); MONOCYTE COUNT 0.1 K/uL (0-0.8); NEUTROPHIL (%) 60.9 % (45-76); PLAT.SUFFICIENCY ADEQUATE
[2017-08-06 18:01] LABS: LIPASE < 3.0 U/L (1.0-51.0)
[2017-08-06 18:26] VITALS: BP 134/68
== END 2017-08-06 18:41 | disposition home or self-care (01) ==
LOC: EME 14:13
PROVIDERS: Physician Assistant
DX: R13.10 Dysphagia, unspecified (principal); K21.9 Gastro-esophageal reflux disease without esophagitis; I10 Essential (primary) hypertension; E11.9 Type 2 diabetes mellitus without complications; F41.9 Anxiety disorder, unspecified; Z87.442 Personal history of urinary calculi; Z85.028 Personal history of other malignant neoplasm of stomach; Z87.440 Personal history of urinary (tract) infections; Z88.5 Allergy status to narcotic agent
CPT/HCPCS: 70360; 71046; 80053; 82948; 83690; 85025; 99281; 99285; J7040

== ENCOUNTER 2017-08-15 15:27 | Inpatient (IN) | payer OTHER ==
[~2017-08-15] VITALS: Ht 167.6 cm; Wt 47.8 kg
[2017-08-15 16:28] LABS: ALBUMIN 2.8 g/dL (3.2-4.8); CHLORIDE 101 mEq/L (99-109); POTASSIUM 3.2 mEq/L (3.7-5.4); SODIUM 142 mEq/L (136-147)
[2017-08-15 16:29] LABS: INTER. NORMALIZED RATIO 2.1
[2017-08-15 16:31] LABS: GLUCOSE 176 mg/dL (70-99); PTT 24.6 SEC (25-37); TOTAL PROTEIN 6.4 g/dL (6.4-8.3)
[2017-08-15 16:33] LABS: TOTAL BILIRUBIN 0.7 mg/dL (0.0-1.0)
[2017-08-15 16:34] LABS: ALKALINE PHOSPHATASE 54 IU/L (3-129); CREATININE 0.7 mg/dL (0.6-1.3); GFR ESTIMATE (CALCULATED) > 59 mL/min/
[2017-08-15 16:35] LABS: UREA NITROGEN (BUN) 14 mg/dL (9-23)
[2017-08-15 16:36] LABS: AST (GOT) 13 IU/L (2-34)
[2017-08-15 16:37] LABS: ALT (GPT) 9 IU/L (3-49)
[2017-08-15 17:28] LABS: HEMATOCRIT ND % (36.0-46.0); HEMOGLOBIN ND G/DL (11.9-15.5); MCV ND FL (83-99); RED BLOOD COUNT ND M/uL (3.80-5.20); WHITE BLOOD COUNT ND K/uL (4.1-10.2)
[2017-08-15 17:29] LABS: BAND NEUTROPHILS ND % (0-8.0); IMM.PLATELET FRACTION ND (1-7); MCH ND PG (29.0-34.0); MCHC ND G/DL (30.0-36.0); NRBC (%) ND /100 WBC (0-0); PLATELET COUNT ND K/uL (156-360); RBC DIS.WIDTH-CV ND % (11.8-14.6); RBC DIS.WIDTH-SD ND % (39-53); SEG.NEUTROPHILS ND % (46.0-76.0)
[2017-08-15 17:30] LABS: ANISOCYTOSIS ND; ATYPICAL LYMPHOCYTE ND %; BASOPHILS ND %; EOSINOPHILS ND % (0-5.0); LYMPHOCYTES ND % (15.0-45.0); MACROCYTES ND; MONOCYTES ND % (0-9.0); MYELOCYTES ND %; NUCLEATED RBC'S ND
[2017-08-15 17:31] LABS: ABS NEUTROPHIL COUNT ND; EOSINOPHIL ABS CT ND; HEMATOLOGY COMMENT 1 ND; PLAT.SUFFICIENCY ND; SMUDGE CELLS ND
[2017-08-15 17:34] LABS: HEMATOCRIT 20.4 % (36.0-46.0); MCH 34.2 PG (29.0-34.0); MCHC 31.9 G/DL (30.0-36.0); MCV 107.4 FL (83-99); NRBC (%) 0.6 /100 WBC (0-0); PLATELET COUNT 157 K/uL (156-360); RBC DIS.WIDTH-SD 73.5 % (39-53); WHITE BLOOD COUNT 3.1 K/uL (4.1-10.2)
[2017-08-15 17:36] LABS: HEMOGLOBIN 6.5 G/DL (11.9-15.5)
[2017-08-15 19:00] VITALS: BP 118/65
[2017-08-15 20:50] VITALS: BP 141/48
[2017-08-16] VITALS (9 sets, daily range): BP systolic 123–150; BP diastolic 61–67
[2017-08-16 07:32] LABS: CHLORIDE 106 MEQ/L (99-109); CREATININE 0.7 MG/DL (0.6-1.3); GFR ESTIMATE (CALCULATED) > 59 mL/min/; GLUCOSE 161 mg/dL (70-99); SODIUM 141 MEQ/L (136-147); UREA NITROGEN (BUN) 14 mg/dL (9-23)
[2017-08-16 07:43] LABS: POTASSIUM 5.2 MEQ/L (3.7-5.4)
[2017-08-16 07:48] LABS: HEMATOCRIT 29.4 % (36.0-46.0); HEMOGLOBIN 9.6 G/DL (11.9-15.5); MCH 33.2 PG (29.0-34.0); MCHC 32.7 G/DL (30.0-36.0); MCV 101.7 FL (83-99); PLATELET COUNT 147 K/uL (156-360); RBC DIS.WIDTH-CV 21.2 % (11.8-14.6); RBC DIS.WIDTH-SD 76.5 % (39-53); RED BLOOD COUNT 2.89 M/uL (3.80-5.20); WHITE BLOOD COUNT 4.7 K/uL (4.1-10.2)
[2017-08-16] MEDS ORDERED: CARDIZEM30 MG PO (09:42)
[2017-08-16] MEDS ORDERED: ELIQUIS2.5 MG PO (09:42)
[2017-08-16] MEDS ORDERED: RANITIDINE HCL150 M1 PO (09:44)
[2017-08-16] MEDS ORDERED: BACTRIM,SEPT1 TABLET PO (09:46)
[2017-08-16] MEDS ORDERED: FLORASTOR250 MG PO (09:49)
[2017-08-16] MEDS ORDERED: CLARITIN10 M3 PO (11:00)
[2017-08-16] MEDS ORDERED: NYSTATIN100000 UN1 PO (11:02)
[2017-08-16] MEDS ORDERED: DECADRON4 M1 PO (11:03)
[2017-08-16] MEDS ORDERED: ANTIVERT25 MG PO (11:04)
[2017-08-16] MEDS ORDERED: PRAVACHOL20 MG PO (11:04)
[2017-08-16] MEDS ORDERED: VANCOCIN 250 M250 MG PO (11:04)
[2017-08-16] MEDS ORDERED: ZOLOFT25 MG PO (11:05)
[2017-08-17] VITALS (7 sets, daily range): BP systolic 112–144; BP diastolic 56–79
[2017-08-17 06:26] LABS: HEMATOCRIT 29.6 % (36.0-46.0); HEMOGLOBIN 9.6 G/DL (11.9-15.5); MCHC 32.4 G/DL (30.0-36.0); MCV 101.7 FL (83-99); PLATELET COUNT 163 K/uL (156-360); RBC DIS.WIDTH-CV 20.6 % (11.8-14.6); RED BLOOD COUNT 2.91 M/uL (3.80-5.20); WHITE BLOOD COUNT 3.5 K/uL (4.1-10.2)
[2017-08-17 06:57] LABS: CHLORIDE 106 MEQ/L (99-109); CREATININE 0.6 MG/DL (0.6-1.3); GFR ESTIMATE (CALCULATED) > 59 mL/min/; GLUCOSE 154 mg/dL (70-99); SODIUM 142 MEQ/L (136-147); UREA NITROGEN (BUN) 14 mg/dL (9-23)
[2017-08-17 07:00] LABS: POTASSIUM 4.1 MEQ/L (3.7-5.4)
[2017-08-18 03:50] VITALS: BP 125/65
[2017-08-18 06:58] LABS: HEMATOCRIT 30.9 % (36.0-46.0); MCH 33.2 PG (29.0-34.0); MCHC 32.4 G/DL (30.0-36.0); MCV 102.7 FL (83-99); PLATELET COUNT 178 K/uL (156-360); RBC DIS.WIDTH-CV 19.7 % (11.8-14.6); RBC DIS.WIDTH-SD 73.7 % (39-53); RED BLOOD COUNT 3.01 M/uL (3.80-5.20); WHITE BLOOD COUNT 3.3 K/uL (4.1-10.2)
[2017-08-18 07:06] LABS: CHLORIDE 102 MEQ/L (99-109); CREATININE 0.7 MG/DL (0.6-1.3); GFR ESTIMATE (CALCULATED) > 59 mL/min/; GLUCOSE 144 mg/dL (70-99); POTASSIUM 4.3 MEQ/L (3.7-5.4); SODIUM 139 MEQ/L (136-147); UREA NITROGEN (BUN) 17 mg/dL (9-23)
[2017-08-18 07:09] VITALS: BP 136/63
[2017-08-18 10:55] VITALS: BP 104/57
[2017-08-18 23:45] VITALS: BP 111/56
[2017-08-19 07:23] VITALS: BP 117/58
[2017-08-19 15:53] VITALS: BP 115/58
== END 2017-08-19 17:54 | disposition home health service (06) | DRG 253 ==
LOC: EME 15:27 → EDOF 20:25 → 2EAST 20:25 → ENRESERV 20:27 → 2EAST 23:42 → ENPENDDIS 08-19 → 2EAST 08-19 17:54
PROVIDERS: Emergency Medicine; Hospitalist; Internal Medicine
PROC: 30233N1 Transfusion of Nonautologous Red Blood Cells into Peripheral Vein, Percutaneous Approach (ICD-10-PCS; principal; 2017-08-15)
PROC: 0DB68ZX Excision of Stomach, Via Natural or Artificial Opening Endoscopic, Diagnostic (ICD-10-PCS; 2017-08-16)
PROC: 06H03DZ Insertion of Intraluminal Device into Inferior Vena Cava, Percutaneous Approach (ICD-10-PCS; 2017-08-17)
DX: I82.412 Acute embolism and thrombosis of left femoral vein (principal); E11.9 Type 2 diabetes mellitus without complications; I82.422 Acute embolism and thrombosis of left iliac vein; I48.91 Unspecified atrial fibrillation; I10 Essential (primary) hypertension; E78.5 Hyperlipidemia, unspecified; C90.00 Multiple myeloma not having achieved remission; Z86.718 Personal history of other venous thrombosis and embolism; Z86.19 Personal history of other infectious and parasitic diseases; Z91.19 Patient's noncompliance with other medical treatment and regimen; Z87.442 Personal history of urinary calculi; D63.8 Anemia in other chronic diseases classified elsewhere; Z79.01 Long term (current) use of anticoagulants; K44.9 Diaphragmatic hernia without obstruction or gangrene; K22.2 Esophageal obstruction; K21.9 Gastro-esophageal reflux disease without esophagitis; D53.9 Nutritional anemia, unspecified
CPT/HCPCS: 36415; 80048; 80053; 81003; 82948; 85007; 85025; 85027; 85610; 85730; 86850; 86900; 86901; 86920; 88305; 88342 TC; 93005; 93971; 99281; 99285; C1769; J1644; P9016

== ENCOUNTER 2017-08-28 11:42 | Inpatient (IN) | payer OTHER ==
[~2017-08-28] VITALS: Ht 167.6 cm; Wt 97.8 kg
[~2017-08-28 11:42] MED LIST changes: +DECADRON4 M1 PO; +NYSTATIN100000 UN1 PO
[2017-08-28 13:29] LABS: HEMATOCRIT 32.3 % (36.0-46.0); HEMOGLOBIN 10.6 G/DL (11.9-15.5); MCH 33.7 PG (29.0-34.0); MCHC 32.8 G/DL (30.0-36.0); MCV 102.5 FL (83-99); PLATELET COUNT 350 K/uL (156-360); RBC DIS.WIDTH-CV 18.6 % (11.8-14.6); RBC DIS.WIDTH-SD 69.1 % (39-53); RED BLOOD COUNT 3.15 M/uL (3.80-5.20); WHITE BLOOD COUNT 5.2 K/uL (4.1-10.2)
[2017-08-28 13:38] LABS: INTER. NORMALIZED RATIO 1.7
[2017-08-28 13:41] LABS: ALBUMIN 2.4 g/dL (3.2-4.8); CHLORIDE 105 mEq/L (99-109); POTASSIUM 5.1 mEq/L (3.7-5.4); PTT 27.3 SEC (25-37); SODIUM 140 mEq/L (136-147)
[2017-08-28 13:44] LABS: GLUCOSE 164 mg/dL (70-99); TOTAL PROTEIN 5.8 g/dL (6.4-8.3)
[2017-08-28 13:46] LABS: TOTAL BILIRUBIN 0.6 mg/dL (0.0-1.0)
[2017-08-28 13:47] LABS: ALKALINE PHOSPHATASE 62 IU/L (3-129); CREATININE 0.8 mg/dL (0.6-1.3); GFR ESTIMATE (CALCULATED) > 59 mL/min/
[2017-08-28 13:48] LABS: UREA NITROGEN (BUN) 37 mg/dL (9-23)
[2017-08-28 13:49] LABS: AST (GOT) 10 IU/L (2-34)
[2017-08-28 13:50] LABS: ALT (GPT) 7 IU/L (3-49)
[2017-08-28 13:51] LABS: TROP-I INTERPRETATION NEGATIVE; TROPONIN-I < 0.01 ng/mL (0.0-0.30)
[2017-08-28 16:03] LABS: APPEARANCE SL.HAZY ((CLEAR)); BILIRUBIN NEGATIVE; BLOOD SMALL; COLOR AMBER ((YELLOW)); GLUCOSE (STRIP) NEGATIVE; KETONES NEGATIVE; LEUKOCYTES TRACE; NITRITE NEGATIVE; PROTEIN (STRIP) 30; SPECIFIC GRAVITY 1.028 (1.000-1.030)
[2017-08-28 16:12] LABS: BACTERIA RARE /HPF; EPITHELIAL CELLS RARE /HPF; HYALINE CASTS 0-5 /LPF; MUCUS TRACE /LPF; RED BLOOD CELLS 0-5 /HPF (0-5); UCUL ADDED? NO; WHITE BLOOD CELLS 0-5 /HPF (0-5)
[2017-08-28] MEDS ORDERED: BACTRIM,SEPT1 TABLET PO (18:15)
[2017-08-28] MEDS ORDERED: CLARITIN10 M3 PO (18:15)
[2017-08-28] MEDS ORDERED: ELIQUIS2.5 MG PO (18:15)
[2017-08-28] MEDS ORDERED: ANTIVERT25 MG PO (18:15)
[2017-08-28] MEDS ORDERED: DECADRON4 M1 PO (18:15)
[2017-08-28] MEDS ORDERED: ZOLOFT25 MG PO (18:15)
[2017-08-28] MEDS ORDERED: RANITIDINE HCL150 M1 PO (18:15)
[2017-08-28] MEDS ORDERED: CARDIZEM30 MG PO (18:15)
[2017-08-28] MEDS ORDERED: FLORASTOR250 MG PO (18:15)
[2017-08-28] MEDS ORDERED: PRAVACHOL20 MG PO (18:15)
[2017-08-29 06:34] LABS: HEMATOCRIT 32.4 % (36.0-46.0); MCH 32.7 PG (29.0-34.0); MCHC 30.9 G/DL (30.0-36.0); MCV 105.9 FL (83-99); PLATELET COUNT 327 K/uL (156-360); RBC DIS.WIDTH-CV 18.8 % (11.8-14.6); RBC DIS.WIDTH-SD 73.7 % (39-53); RED BLOOD COUNT 3.06 M/uL (3.80-5.20); WHITE BLOOD COUNT 4.5 K/uL (4.1-10.2)
[2017-08-29 06:55] LABS: ALKALINE PHOSPHATASE 46 IU/L (3-129); ALT (GPT) 6 IU/L (3-49); AST (GOT) 10 IU/L (2-34); CHLORIDE 110 MEQ/L (99-109); CREATININE 0.7 MG/DL (0.6-1.3); GFR ESTIMATE (CALCULATED) > 59 mL/min/; GLUCOSE 154 mg/dL (70-99); POTASSIUM 4.8 MEQ/L (3.7-5.4); SODIUM 141 MEQ/L (136-147); TOTAL BILIRUBIN 0.4 MG/DL (0.0-1.0); TOTAL PROTEIN 4.6 G/DL (6.4-8.3); UREA NITROGEN (BUN) 29 mg/dL (9-23)
[2017-08-29 07:13] LABS: ABS NEUTROPHIL COUNT 3.3; ANISOCYTOSIS 2+; EOSINOPHIL ABS CT 0; LYMPHOCYTES 16.2 % (15.0-45.0); MACROCYTES 2+; METAMYELOCYTES 7.2 %; MICROCYTOSIS 1+; MONOCYTES 2.7 % (0-9.0); MYELOCYTES 0.9 %; NUCLEATED RBC'S 1.8; PLAT.SUFFICIENCY ADEQUATE; PLATELET CLUMPS PRESENT - PLATELET COUNT APPEARS ADQ.
[2017-08-29 07:16] LABS: BAND NEUTROPHILS 47.8 % (0-8.0); SEG.NEUTROPHILS 25.2 % (46.0-76.0)
[2017-08-29 07:32] VITALS: BP 131/61
[2017-08-29 11:27] VITALS: BP 130/64
[2017-08-29 16:20] VITALS: BP 135/68
[2017-08-29 23:51] VITALS: BP 119/65
[2017-08-30 07:41] LABS: HEMATOCRIT 35.7 % (36.0-46.0); HEMOGLOBIN 10.9 G/DL (11.9-15.5); MCH 32.3 PG (29.0-34.0); MCHC 30.5 G/DL (30.0-36.0); MCV 105.9 FL (83-99); NRBC (%) 0.4 /100 WBC (0-0); PLATELET COUNT 370 K/uL (156-360); RBC DIS.WIDTH-CV 18.8 % (11.8-14.6); RBC DIS.WIDTH-SD 73.8 % (39-53); RED BLOOD COUNT 3.37 M/uL (3.80-5.20); WHITE BLOOD COUNT 4.8 K/uL (4.1-10.2)
[2017-08-30 07:43] VITALS: BP 126/76
[2017-08-30 08:06] LABS: CHLORIDE 111 MEQ/L (99-109); CREATININE 0.7 MG/DL (0.6-1.3); GFR ESTIMATE (CALCULATED) > 59 mL/min/; GLUCOSE 146 mg/dL (70-99); POTASSIUM 4.8 MEQ/L (3.7-5.4); SODIUM 143 MEQ/L (136-147); UREA NITROGEN (BUN) 27 mg/dL (9-23)
[2017-08-30 14:43] LABS: C DIFF TOXIN POSITIVE (NEGATIVE)
[2017-08-30 16:00] VITALS: BP 118/72
[2017-08-30 20:37] VITALS: BP 120/70
[2017-08-31 00:16] VITALS: BP 129/60
[2017-08-31 01:04] LABS: APPEARANCE CLEAR ((CLEAR)); BILIRUBIN NEGATIVE; BLOOD MODERATE; COLOR AMBER ((YELLOW)); GLUCOSE (STRIP) NEGATIVE; KETONES NEGATIVE; LEUKOCYTES TRACE; NITRITE NEGATIVE; PROTEIN (STRIP) 30; SPECIFIC GRAVITY 1.026 (1.000-1.030)
[2017-08-31 01:18] LABS: BACTERIA NONE SEEN /HPF; EPITHELIAL CELLS NONE SEEN /HPF; HYALINE CASTS 0-5 /LPF; MUCUS TRACE /LPF; UCUL ADDED? NO; WHITE BLOOD CELLS 0-5 /HPF (0-5)
[2017-08-31 06:39] LABS: HEMATOCRIT 35.7 % (36.0-46.0); HEMOGLOBIN 11.1 G/DL (11.9-15.5); MCH 32.6 PG (29.0-34.0); MCHC 31.1 G/DL (30.0-36.0); NRBC (%) 0.4 /100 WBC (0-0); PLATELET COUNT 361 K/uL (156-360); RBC DIS.WIDTH-CV 18.7 % (11.8-14.6); RBC DIS.WIDTH-SD 72.8 % (39-53); WHITE BLOOD COUNT 5.1 K/uL (4.1-10.2)
[2017-08-31 06:54] LABS: CHLORIDE 109 MEQ/L (99-109); CREATININE 0.7 MG/DL (0.6-1.3); GFR ESTIMATE (CALCULATED) > 59 mL/min/; GLUCOSE 156 mg/dL (70-99); POTASSIUM 4.6 MEQ/L (3.7-5.4); SODIUM 141 MEQ/L (136-147); UREA NITROGEN (BUN) 27 mg/dL (9-23)
[2017-08-31 08:00] VITALS: BP 110/80
[2017-08-31 12:17] VITALS: BP 130/70
[2017-08-31 15:40] VITALS: BP 134/61
[2017-09-01 00:05] VITALS: BP 123/70
[2017-09-01 07:24] VITALS: BP 117/64
[2017-09-01 16:44] VITALS: BP 130/70
[2017-09-01 23:31] VITALS: BP 135/66
[2017-09-02 06:13] LABS: HEMATOCRIT 32.9 % (36.0-46.0); HEMOGLOBIN 10.5 G/DL (11.9-15.5); MCH 32.7 PG (29.0-34.0); MCHC 31.9 G/DL (30.0-36.0); MCV 102.5 FL (83-99); NRBC (%) 1.2 /100 WBC (0-0); PLATELET COUNT 345 K/uL (156-360); RBC DIS.WIDTH-CV 18.9 % (11.8-14.6); RBC DIS.WIDTH-SD 71.9 % (39-53); RED BLOOD COUNT 3.21 M/uL (3.80-5.20)
[2017-09-02 06:31] LABS: CHLORIDE 110 MEQ/L (99-109); CREATININE 0.7 MG/DL (0.6-1.3); GFR ESTIMATE (CALCULATED) > 59 mL/min/; GLUCOSE 190 mg/dL (70-99); POTASSIUM 4.5 MEQ/L (3.7-5.4); SODIUM 140 MEQ/L (136-147); UREA NITROGEN (BUN) 34 mg/dL (9-23)
[2017-09-02 08:00] VITALS: BP 134/84
[2017-09-02 16:00] VITALS: BP 122/80
[2017-09-03] VITALS: BP 97/54
[2017-09-03 06:40] VITALS: BP 114/63
[2017-09-03 16:05] VITALS: BP 114/67
[2017-09-04 00:10] VITALS: BP 101/62
[2017-09-04 00:11] VITALS: BP 179/74
[2017-09-04 07:32] VITALS: BP 132/62
[2017-09-04] MEDS ORDERED: DRONABINOL2.5 MG PO (12:25)
[2017-09-04] MEDS ORDERED: FLORASTOR250 MG PO (12:25)
[2017-09-04] MEDS ORDERED: VANCOCIN 250 M250 MG PO (12:25)
== END 2017-09-04 16:45 | DRG 372 ==
LOC: EME 11:42 → EDOF 20:14 → 5SOUTH 20:14 → ENRESERV 20:19 → CANRESERV 22:43 → ENRESERV 23:58 → 5SOUTH 08-29 01:12 → ENRESERV 09-02 → 5EAST 09-02 22:51
PROVIDERS: Emergency Medicine Emergency Medical Services; Hospitalist; Internal Medicine; Physician Assistant; Physician Assistant Medical
DX: A04.72 Enterocolitis due to Clostridium difficile, not specified as recurrent (principal); N39.0 Urinary tract infection, site not specified; E86.0 Dehydration; I48.0 Paroxysmal atrial fibrillation; I10 Essential (primary) hypertension; E11.9 Type 2 diabetes mellitus without complications; R18.8 Other ascites; D89.9 Disorder involving the immune mechanism, unspecified; K82.8 Other specified diseases of gallbladder; D64.9 Anemia, unspecified; F03.90 Unspecified dementia, unspecified severity, without behavioral disturbance, psychotic disturbance, mood disturbance, and anxiety; C90.00 Multiple myeloma not having achieved remission; K21.9 Gastro-esophageal reflux disease without esophagitis; Z53.20 Procedure and treatment not carried out because of patient's decision for unspecified reasons; Z79.01 Long term (current) use of anticoagulants; Z79.899 Other long term (current) drug therapy; Z85.028 Personal history of other malignant neoplasm of stomach; Z86.718 Personal history of other venous thrombosis and embolism; Z87.442 Personal history of urinary calculi; Z91.14 Patient's other noncompliance with medication regimen; Z92.21 Personal history of antineoplastic chemotherapy; Z91.81 History of falling; Z83.3 Family history of diabetes mellitus
CPT/HCPCS: 70450; 71045; 74176; 80048; 80053; 81003; 82948; 83735; 84376 90; 84484; 85025; 85027; 85610; 85730; 86850; 86900; 86901; 87177; 87329; 87493; 87506; 93005; 93880; 95819; 99281; 99285; J0696; J1815; J2405; J7030; J7040; Q0167; S0030